=== PATIENT | male | born 1950 | race Caucasian/White ===

== ENCOUNTER 2024-02-25 07:56 | Inpatient (IN) | payer MEDICARE ==
[~2024-02-25] VITALS: Ht 177.8 cm; Wt 85.3 kg
[2024-02-25] MEDS ORDERED: FENTANYL PF 100MCG/2ML AMPUL ONE (09:29)
[2024-02-25] MEDS ORDERED: ROCURONIUM BROMIDE 50 MG/5 ML ONE (09:29)
[2024-02-25] MEDS ORDERED: FAMOTIDINE/PF INJ 20 MG/2 ML VIAL IV ONE (09:29)
[2024-02-25] MEDS ORDERED: OXYMETAZOLINE HCL NASAL SPRAY 30 ML BOTTLE NS ONE (09:30)
[2024-02-25] MEDS ORDERED: VANCOMYCIN 1 GM VIAL ONE (09:49)
[2024-02-25] MEDS ORDERED: LIDOCAINE 2%-EPI 1:100,000 30 ML VIAL ONE (09:49)
[2024-02-25 12:30] VITALS: BP 143/77; TEMP 98.2
[2024-02-25] MEDS ORDERED: HYDROMORPHONE 1 MG/1 ML DISP.SYRIN IV PRN (13:30)
[2024-02-25] MEDS ORDERED: ONDANSETRON HCL/PF 4 MG/2 ML VIAL IV PRN (13:30)
[2024-02-25] MEDS ORDERED: CLON0.5T PO ×2 (15:45)
[2024-02-25] MEDS ORDERED: AMIT25TA9 PO (15:45)
[2024-02-25] MEDS ORDERED: MIRT-90 PO (15:45)
[2024-02-25] MEDS ORDERED: TRAZ-257 PO (15:45)
[2024-02-25] MEDS ORDERED: TAMS-12 PO (15:45)
[2024-02-25] MEDS ORDERED: SIMV-46 PO (15:45)
[2024-02-25] MEDS: IV NS 0.9% 1,000 ML IV PRN (16:04)
[2024-02-25 16:10] VITALS: BP 128/81; TEMP 98.1; O2SAT 98
[2024-02-25 20:00] VITALS: BP 126/76; TEMP 97.5; O2SAT 95
[2024-02-25] MEDS: VANCOMYCIN 1 GM in IV D5W 250ml IV SCH (21:00)
[2024-02-25] MEDS: AMITRIPTYLINE HCL 25 MG TABLET PO SCH (21:11)
[2024-02-25] MEDS: TAMSULOSIN 0.4 MG CAP.SR.24H PO SCH (21:11)
[2024-02-25] MEDS: clonazePAM 0.5 MG TABLET PO SCH (21:11)
[2024-02-25] MEDS: MIRTAZAPINE 15 MG TABLET PO SCH (21:12)
[2024-02-26 08:00] VITALS: BP 137/79; TEMP 97.7; O2SAT 98
[2024-02-26] MEDS: clonazePAM 0.5 MG TABLET PO SCH (09:10)
== END 2024-02-26 11:55 | disposition home or self-care (01) | DRG 516 ==
LOC: DS 07:56 → MED 14:37
PROVIDERS: ADMIT Internal Medicine; ATTEND Internal Medicine
PROC: 0NUR07Z Supplement Maxilla with Autologous Tissue Substitute, Open Approach (ICD-10-PCS; principal; 2024-02-25)
PROC: 0NSR04Z Reposition Maxilla with Internal Fixation Device, Open Approach (ICD-10-PCS; 2024-02-25)
PROC: 0NUR0JZ Supplement Maxilla with Synthetic Substitute, Open Approach (ICD-10-PCS; 2024-02-25)
PROC: 0NBR0ZX Excision of Maxilla, Open Approach, Diagnostic (ICD-10-PCS; 2024-02-25)
DX: T84.59XA Infection and inflammatory reaction due to other internal joint prosthesis, initial encounter (principal); M86.9 Osteomyelitis, unspecified; M87.9 Osteonecrosis, unspecified; D16.4 Benign neoplasm of bones of skull and face; M27.2 Inflammatory conditions of jaws; J32.0 Chronic maxillary sinusitis; F41.9 Anxiety disorder, unspecified; E78.5 Hyperlipidemia, unspecified; N40.0 Benign prostatic hyperplasia without lower urinary tract symptoms; M85.60 Other cyst of bone, unspecified site; Z79.899 Other long term (current) drug therapy; Y83.8 Other surgical procedures as the cause of abnormal reaction of the patient, or of later complication, without mention of misadventure at the time of the procedure; Y92.009 Unspecified place in unspecified non-institutional (private) residence as the place of occurrence of the external cause
CPT/HCPCS: A4223; G0378; J0330; J1170; J2405; J2704; J3010; J3370; J3490; J7030; J7050; J7060

== ENCOUNTER 2024-10-13 07:13 | Inpatient (IN) | payer MEDICARE ==
[~2024-10-13] VITALS: Ht 180.3 cm; Wt 83.9 kg
[~2024-10-13 07:13] MED LIST: AMIT25TA9 PO; CLON0.5T PO; MIRT-90 PO; SIMV-46 PO; TAMS-12 PO; TRAZ-257 PO
[2024-10-13] MEDS ORDERED: dexaMETHasone SOD PHOSPHATE 2 ML ONE (10:37)
[2024-10-13] MEDS ORDERED: LIDOCAINE 2%-EPI 1:100,000 30 ML VIAL ONE (10:37)
[2024-10-13] MEDS ORDERED: OXYMETAZOLINE HCL NASAL SPRAY 30 ML BOTTLE NS ONE (10:38)
[2024-10-13] MEDS ORDERED: VANCOMYCIN 1 GM VIAL ONE (10:38)
[2024-10-13] MEDS ORDERED: FENTANYL PF 250MCG/5ML AMPUL ONE (10:41)
[2024-10-13] MEDS ORDERED: ROCURONIUM BROMIDE 50 MG/5 ML ONE (10:42)
[2024-10-13] MEDS ORDERED: HYDROMORPHONE 1 MG/1 ML DISP.SYRIN IV PRN (14:00)
[2024-10-13] MEDS ORDERED: ACETAMINOPHEN 325 MG TABLET PO PRN ×2 (14:00→16:30)
[2024-10-13] MEDS ORDERED: ONDANSETRON HCL/PF 4 MG/2 ML VIAL IV PRN (14:00)
[2024-10-13 16:00] VITALS: BP 138/75; TEMP 98.4; O2SAT 99
[2024-10-13] MEDS ORDERED: MAGNESIUM HYDROXIDE 30 ML UDC PO PRN (16:30)
[2024-10-13] MEDS ORDERED: HYDROCODONE/APAP 5/325MG TABLET PO PRN (16:30)
[2024-10-13] MEDS: clonazePAM 0.5 MG TABLET PO SCH ×2 (16:30→21:18)
[2024-10-13] MEDS ORDERED: ONDANSETRON HCL/PF 4 MG/2 ML VIAL IVP PRN (16:30)
[2024-10-13] MEDS ORDERED: MAG HYDROX/AL HYDROX/SIMETH 30 ML UDC PO PRN (16:30)
[2024-10-13] MEDS ORDERED: HYDROCODONE/APAP 10/325MG TABLET PO PRN (16:30)
[2024-10-13] MEDS ORDERED: Z GUARD REMEDY 4 OZ OINT TP PRN (16:30)
[2024-10-13] MEDS: IV NS 0.9% 1,000 ML IV PRN (17:18)
[2024-10-13 20:00] VITALS: BP 125/73; TEMP 98.8; O2SAT 95
[2024-10-13] MEDS: TRAZODONE 50 MG TABLET PO SCH (21:16)
[2024-10-13] MEDS: MIRTAZAPINE 15 MG TABLET PO SCH (21:18)
[2024-10-13] MEDS: SIMVASTATIN 20 MG TABLET PO SCH (21:18)
[2024-10-13] MEDS: AMITRIPTYLINE HCL 25 MG TABLET PO SCH (21:18)
[2024-10-13] MEDS: VANCOMYCIN 1 GM in IV D5W 250ml IV SCH (21:26)
[2024-10-14 08:00] VITALS: BP 138/75; TEMP 98.6; O2SAT 94
== END 2024-10-14 11:00 | disposition home or self-care (01) | DRG 908 ==
LOC: DS 07:13 → MED 13:18
PROVIDERS: ADMIT Internal Medicine; ATTEND Internal Medicine
PROC: 0N5R0ZZ Destruction of Maxilla, Open Approach (ICD-10-PCS; principal; 2024-10-13)
PROC: 0NUR07Z Supplement Maxilla with Autologous Tissue Substitute, Open Approach (ICD-10-PCS; principal; 2024-10-13)
PROC: [UNRECOGNIZED PROCEDURE] (principal; 2024-10-13)
PROC: 0NSR04Z Reposition Maxilla with Internal Fixation Device, Open Approach (ICD-10-PCS; principal; 2024-10-13)
PROC: 0NUR0KZ Supplement Maxilla with Nonautologous Tissue Substitute, Open Approach (ICD-10-PCS; principal; 2024-10-13)
DX: T86.831 Bone graft failure (principal); S02.40CK Maxillary fracture, right side, subsequent encounter for fracture with nonunion; S02.40DK Maxillary fracture, left side, subsequent encounter for fracture with nonunion; J32.0 Chronic maxillary sinusitis; Z85.46 Personal history of malignant neoplasm of prostate; Z79.899 Other long term (current) drug therapy; I45.10 Unspecified right bundle-branch block; M27.2 Inflammatory conditions of jaws; X58.XXXD Exposure to other specified factors, subsequent encounter; D16.4 Benign neoplasm of bones of skull and face; Y83.2 Surgical operation with anastomosis, bypass or graft as the cause of abnormal reaction of the patient, or of later complication, without mention of misadventure at the time of the procedure; R94.31 Abnormal electrocardiogram [ECG] [EKG]
CPT/HCPCS: 36415; 71046; 80053-TC; 80061-TC; 85025-TC; 85730-TC; 88305-TC; 88311-TC; 88312-TC; A4223; A4338; C1713; G0378; J0461; J0690; J1100; J2704; J3010; J3370; J3490; J7030; J7060

== ENCOUNTER 2025-09-06 06:29 | Inpatient (IN) | payer MEDICARE ==
[~2025-09-06] VITALS: Ht 177.8 cm; Wt 94.8 kg
[~2025-09-06 06:29] MED LIST changes: -TAMS-12 PO
[2025-09-06] MEDS ORDERED: VANCOMYCIN 1 GM VIAL ONE (07:12)
[2025-09-06] MEDS ORDERED: ANESTHESIA TRAY IN PYXIS 1 EA TRAY MC ONE (07:12)
[2025-09-06] MEDS ORDERED: LIDOCAINE 2%-EPI 1:100,000 30 ML VIAL ONE (07:12)
[2025-09-06] MEDS ORDERED: dexaMETHasone SOD PHOSPHATE 2 ML ONE (07:12)
[2025-09-06] MEDS ORDERED: ROCURONIUM BROMIDE 50 MG/5 ML ONE (07:18)
[2025-09-06] MEDS ORDERED: FENTANYL PF 250MCG/5ML AMPUL ONE (07:18)
[2025-09-06 10:00] VITALS: BP 121/65; TEMP 97.7; O2SAT 97
[2025-09-06] MEDS ORDERED: ONDANSETRON HCL/PF 4 MG/2 ML VIAL IV PRN (10:00)
[2025-09-06] MEDS ORDERED: ACETAMINOPHEN 325 MG TABLET PO PRN ×2 (10:00→10:30)
[2025-09-06] MEDS ORDERED: HYDROMORPHONE 1 MG/1 ML DISP.SYRIN IV PRN (10:00)
[2025-09-06] MEDS: IV NS 0.9% 1,000 ML IV PRN (10:19)
[2025-09-06] MEDS ORDERED: MAGN400T30 PO (10:30)
[2025-09-06] MEDS ORDERED: ONDANSETRON HCL/PF 4 MG/2 ML VIAL IVP PRN (10:30)
[2025-09-06] MEDS ORDERED: VITA1TAB56 PO (10:30)
[2025-09-06] MEDS ORDERED: MAGNESIUM HYDROXIDE 30 ML UDC PO PRN (10:30)
[2025-09-06] MEDS ORDERED: CALC-1026 PO (10:30)
[2025-09-06] MEDS ORDERED: MAG HYDROX/AL HYDROX/SIMETH 30 ML UDC PO PRN (10:30)
[2025-09-06] MEDS ORDERED: VITAMIN C (10:30)
[2025-09-06] MEDS ORDERED: Z GUARD REMEDY 4 OZ OINT TP PRN (10:30)
[2025-09-06] MEDS ORDERED: VITAMIN D3 (10:30)
[2025-09-06] MEDS ORDERED: ZINC50TA69 PO (10:30)
[2025-09-06 16:00] VITALS: BP 102/62; TEMP 97.9; O2SAT 95
[2025-09-06] MEDS: VANCOMYCIN 1 GM in IV D5W 250ml IV SCH (18:07)
[2025-09-06 20:00] VITALS: BP 118/66; TEMP 97.9; O2SAT 93
[2025-09-06] MEDS: TRAZODONE 50 MG TABLET PO SCH (21:14)
[2025-09-06] MEDS: MIRTAZAPINE 15 MG TABLET PO SCH (21:15)
[2025-09-06] MEDS: AMITRIPTYLINE HCL 25 MG TABLET PO SCH (21:15)
[2025-09-06] MEDS: SIMVASTATIN 20 MG TABLET PO SCH (21:17)
[2025-09-07 06:15] LABS: PLATELET COUNT (AUTO) 215 K/uL (150-450); RED BLOOD CELL COUNT(AUTO) 3.59 MIL/uL (4.5-6.0); RED CELL DISTRIBUTION WIDTH 14.7 % (11.5-15.0); WHITE BLOOD COUNT (AUTO) 9.3 K/uL (4.3-11.0)
[2025-09-07 06:26] LABS: CALCIUM, SERUM 8.4 mg/dL (8.5-10.1); CREATININE 0.7 mg/dL (0.6-1.3); PHOSPHORUS 3.2 mg/dL (2.5-4.9); SODIUM SERUM 143.0 mmol/L (136-145); UREA NITROGEN, BLOOD 17.0 mg/dL (7-18)
[2025-09-07 08:00] VITALS: BP 116/80; TEMP 98.1; O2SAT 93
[2025-09-07] MEDS: ZINC SULFATE 220 MG CAPSULE PO SCH (08:23)
[2025-09-07] MEDS: ASCORBIC ACID 500 MG TABLET PO SCH (08:23)
[2025-09-07] MEDS: CALCIUM CARBONATE (1250) 500 MG TABLET PO SCH (08:23)
[2025-09-07] MEDS: MAGNESIUM OXIDE 400 MG TABLET PO SCH (08:23)
[2025-09-07] MEDS: PANTOPRAZOLE 40 MG TABLET.DR PO SCH (08:23)
[2025-09-07] MEDS: CHOLECALCIFEROL (VITAMIN D 3) 400 UNIT TABLET PO SCH (08:23)
[2025-09-07] MEDS: VITAMIN B COMP W-C 1 TAB TABLET PO SCH (08:23)
== END 2025-09-07 10:15 | disposition home or self-care (01) | DRG 908 ==
LOC: DS 06:29 → MED 10:14
PROVIDERS: ADMIT Nurse Practitioner Acute Care; ATTEND Nurse Practitioner Acute Care
PROC: 0N5R0ZZ Destruction of Maxilla, Open Approach (ICD-10-PCS; 2025-09-06)
PROC: 0NUR07Z Supplement Maxilla with Autologous Tissue Substitute, Open Approach (ICD-10-PCS; 2025-09-06)
PROC: 0NBR0ZZ Excision of Maxilla, Open Approach (ICD-10-PCS; 2025-09-06)
PROC: 0NUR0JZ Supplement Maxilla with Synthetic Substitute, Open Approach (ICD-10-PCS; 2025-09-06)
PROC: 0NPW04Z Removal of Internal Fixation Device from Facial Bone, Open Approach (ICD-10-PCS; 2025-09-06)
PROC: 0NPW07Z Removal of Autologous Tissue Substitute from Facial Bone, Open Approach (ICD-10-PCS; 2025-09-06)
PROC: 0NSR04Z Reposition Maxilla with Internal Fixation Device, Open Approach (ICD-10-PCS; principal; 2025-09-06 07:30)
DX: T86.831 Bone graft failure (principal); S02.40CK Maxillary fracture, right side, subsequent encounter for fracture with nonunion; D16.4 Benign neoplasm of bones of skull and face; F32.A Depression, unspecified; S02.40DK Maxillary fracture, left side, subsequent encounter for fracture with nonunion; D16.5 Benign neoplasm of lower jaw bone; E78.5 Hyperlipidemia, unspecified; G47.00 Insomnia, unspecified; M27.2 Inflammatory conditions of jaws; M19.90 Unspecified osteoarthritis, unspecified site; F41.9 Anxiety disorder, unspecified; Z85.46 Personal history of malignant neoplasm of prostate; F12.90 Cannabis use, unspecified, uncomplicated; X58.XXXA Exposure to other specified factors, initial encounter; Y92.9 Unspecified place or not applicable; X58.XXXD Exposure to other specified factors, subsequent encounter; Y92.009 Unspecified place in unspecified non-institutional (private) residence as the place of occurrence of the external cause; Y83.2 Surgical operation with anastomosis, bypass or graft as the cause of abnormal reaction of the patient, or of later complication, without mention of misadventure at the time of the procedure
CPT/HCPCS: 36415; 80048-TC; 83735-TC; 84100-TC; 85025-TC; 87070-TC; 88305-TC; 88311-TC; 88312-TC; A4217; A4223; A4338; C1781; G0378; J0461; J0690; J1100; J1171; J1885; J2704; J3010; J3373; J3490; J7030; J7060